=== PATIENT | female | born 1965 | race Caucasian/White ===

== ENCOUNTER 2019-02-01 08:10 | Day surgery (SDC) | payer OTHER | END 2019-02-01 13:25 | disposition home or self-care (01) | LOC: AMB-ENDOS 08:10 → CIR.AMB 09:00 → AMB-ENDOS 13:25 | DX: K62.5 Hemorrhage of anus and rectum (principal); Z12.11 Encounter for screening for malignant neoplasm of colon ==

== ENCOUNTER 2023-08-31 08:30 | Emergency (ER) | payer OTHER ==
[~2023-08-31] VITALS: Ht 170.2 cm; Wt 76.2 kg
[2023-08-31] MEDS ORDERED: ROSUVASTATIN CA10 MG PO (08:59)
[2023-08-31] MEDS ORDERED: SYNTHROID88 MCG PO (08:59)
[2023-08-31] MEDS ORDERED: KETOROLAC TROMETHAMINE 60 MG VIAL IM STA (09:22)
[2023-08-31 09:47] LABS: HEMATOCRIT 38.2 % (36.0-45.00); HEMOGLOBIN 12.9 g/dL (12.0-15.00); MEAN CELL VOLUME 85.7 fL (80.00-100.00); MEAN CORPUSCULAR HEMOGLOBIN 29.1 pg (27.00-32.0); MEAN CORPUSCULAR HGB CONC 33.9 g/dl (32.0-36.0); PLATELET COUNT 167 K/uL (150-450); RED BLOOD COUNT 4.45 M/uL (4.00-6.00); RED CELL DISTRIBUTION WIDTH 14.6 % (11.5-14.5)
[2023-08-31 10:34] LABS: CALCIUM 8.8 mg/dL (8.5-10.1); CREATININE SERUM 0.6 mg/dL (0.55-1.02); GFR 102.68; POTASSIUM 3.87 mEq/L (3.5-5.1)
[2023-08-31 11:39] LABS: PH,URINE 6.5 (5.0-8.0); URINE APPEARANCE Clear; URINE BILIRRUBIN Negative (NEGATIVE); URINE COLOR Yellow; URINE GLUCOSE Negative (NEGATIVE); URINE LEUKOCYTE Small; URINE NITRATE Negative; URINE PROTEIN Negative (NEGATIVE); URINE UROBILINOGEN 0.2 E.U./dl
[2023-08-31 11:40] LABS: URINE BACTERIA 104.5 uL (0.0-1933); URINE EPITHELIAL CELLS 20.7 uL (0.0-38.8)
[2023-08-31 11:47] LABS: URINE BLOOD TRACE
== END 2023-08-31 14:21 | disposition home or self-care (01) ==
LOC: ER 08:30
PROVIDERS: General Practice
DX: R10.9 Unspecified abdominal pain (principal)